=== PATIENT | female | born 1980 | race Caucasian/White ===

== ENCOUNTER 2017-01-08 11:30 | Outpatient (CLI) | payer MEDICAID | END 2017-01-08 11:31 | disposition home or self-care (01) | DX: R00.2 Palpitations (principal) ==

== ENCOUNTER 2017-01-11 12:30 | Outpatient (CLI) | payer MEDICAID | END 2017-01-11 12:31 | disposition home or self-care (01) | DX: R60.0 Localized edema (principal); R00.2 Palpitations; E66.01 Morbid (severe) obesity due to excess calories ==